=== PATIENT | male | born 1995 | race Hispanic/Latino ===

== ENCOUNTER 2021-02-22 12:32 | Emergency (ER) | payer SELFPAY ==
[2021-02-22] MEDS ORDERED: Lidocaine 1% (PF) 30 ML VIAL ONE (13:09)
[2021-02-22] MEDS ORDERED: Boostrix 0.5 ML (Tdap) VIAL ONE (13:09)
[2021-02-22] MEDS ORDERED: Triple Antibiotic Oint 1 GM Packet ONE (13:32)
== END 2021-02-22 13:45 | disposition home or self-care (01) ==
LOC: CSHERS 12:32
DX: S51.812A Laceration without foreign body of left forearm, initial encounter (principal); Z23 Encounter for immunization; W26.0XXA Contact with knife, initial encounter
CPT/HCPCS: 12002; 90715; J2001

== ENCOUNTER 2022-01-17 16:37 | Emergency (ER) | payer BC, SELFPAY ==
[2022-01-17 17:36] LABS: #Basophils 0.1 10x3/uL (0.0-0.2); #Eosinphils 0.1 10x3/uL (0.0-0.5); #Monocytes 0.6 10x3/uL (0.0-1.1); #Neutrophils 10.1 10x3/uL (1.5-8.4); %Basophils 0.4 % (0.0-2.0); %Eosinophils 0.4 % (0.0-6.0); %Lymphocytes 10.6 % (18.0-47.0); %Neutrophils 82.5 % (40.0-75.0); Hemoglobin 14.8 g/dL (13.5-17.5); Mean Corpuscular Hemoglobin 30.6 pg (27.0-33.0); Mean Corpuscular Volume 85.1 fl (81.2-95.1); Mean Platelet Volume 10.6 fl (7.4-10.4); Platelet Count 312 10x3/uL (150-450); RBC Distribution Width 12.5 % (11.5-14.5); Red Blood Cell (RBC) Count 4.83 10x6/uL (4.32-5.72); White Blood Cell (WBC) Count 12.2 10x3/uL (3.5-10.5)
[2022-01-17 17:43] LABS: Anion Gap 16 mmol/L (10-20); BUN (Urea Nitrogen) 5 mg/dL (8.9-20.6); Calc. Creatinine Clearance 0 mL/min (70-130); Carbon Dioxide 19 mmol/L (22-29); Chloride 105 mmol/L (98-107); Potassium 3.9 mmol/L (3.5-5.1); Sodium 136 mmol/L (136-145)
[2022-01-17 17:44] LABS: ALT (SGPT) 20 U/L (8-55); AST (SGOT) 21 U/L (5-34); Albumin 4.3 g/dL (3.5-5.0); Alkaline Phosphatase 101 U/L (40-110); Bilirubin, Total 0.3 mg/dL (0.2-1.2); Estimated GFR 118; Globulin 2.4 g/dL (2.4-3.5); Glucose 118 mg/dL (70-105); Protein, Total 6.7 g/dL (6.0-8.3)
[2022-01-17 17:52] LABS: Bilirubin Neg (Negative); Blood, Urine 50 (Negative); Clarity Sl. Cloudy (Clear); Glucose, Urine (Dipstick) Normal (Negative); Ketone, Urine 5 mg/dL (Negative); Leukocyte 25 (Negative); Nitrite Negative (Negative); Protein, Urine (Dipstick) 30 mg/dl (Neg-Trace); Specific Gravity, Urine 1.025 (1.005-1.030); Urobilinogen Normal mg/dL (Less than 2)
[2022-01-17 18:01] LABS: Bacteria/HPF None Seen HPF (None Seen); Squamous Epithelial 0-3 HPF (0-3)
[2022-01-17 18:01] LABS: Anisocytosis SLIGHT = 6-15 cells (100X) (0-5/hpf); Polychromasia SLIGHT = 2-3 cells (100X) (0-2/hpf)
[2022-01-17 18:02] LABS: Platelet Morphology Comment Appears Decreased
[2022-01-17 18:02] LABS: Sperm/HPF 3+ HPF (None Seen)
[2022-01-17] MEDS ORDERED: Lorazepam 2 MG/ML VIAL ONE (18:26)
== END 2022-01-17 18:50 | disposition home or self-care (01) ==
LOC: CSHERS 16:37
DX: R56.9 Unspecified convulsions (principal); F17.210 Nicotine dependence, cigarettes, uncomplicated
CPT/HCPCS: 70450; 80053; 81003; 81015; 84146; 85025; 96374; J2060